=== PATIENT | female | born 2000 | race Caucasian/White ===

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

== ENCOUNTER 2022-09-04 01:00 | Emergency (ER) | payer OTHER | END 2022-09-04 01:30 | disposition home or self-care (01) | LOC: VM.ED 01:00 | DX: S61.012A Laceration without foreign body of left thumb without damage to nail, initial encounter (principal); Y29.XXXA Contact with blunt object, undetermined intent, initial encounter | CPT/HCPCS: 99282; 99283 ==